=== PATIENT | female | born 1985 | race Caucasian/White ===

== ENCOUNTER 2016-09-09 13:05 | Emergency (ER) | payer OTHER ==
[~2016-09-09] VITALS: Ht 157.4 cm; Wt 106.6 kg
[~2016-09-09 13:05] MED LIST: ALAVERT10 M1 PO; ANAPROX DS550 MG PO; ATARAX25 MG PO; B12100 MC1; BACTRIM DS 8001 TA1 PO; BACTROBAN2% TP; BIO-STATIN1 POW; CATAFLAM50 MG PO; CIPRO500 MG PO; CITALOPRAM10 MG PO; CLARITIN10 MG PO; CYCLOBENZAPRINE5 M3 PO; DIFLUCAN150 MG PO; EES400 MG PO; FLEXERIL5 MG PO; FOLIC ACID1 MG PO; HYDROCHLOROTHIA25 MG PO; HYDROCORTISONE 14 OZ PO; IBU-8800 MG PO; IRON324 M1 PO; KCL PO; KEFLEX500 MG PO; KENALOG0.1% TP; KENALOG0.5% TP; LISINOPRIL10 MG PO; LISINOPRIL2.5 MG PO; LOPRESSOR25 MG PO; MACROBID100 M1 PO; MEDROL DOSEPAK4 MG PO; MOTRIN800 MG PO; Motrin,Rufen800 MG PO; NAPROSYN500 MG PO; NKHM; PERCOCET; PERCOCET 325 MG1 TA2 PO; POTASSIUM75 MG PO; PREDNICOT10 MG PO; PREDNISONE PO; PRENATAL1 TA1 PO; SEPTRA DS 800 M1 TAB PO; TOPAMAX25 M1 PO; TORADOL10 MG PO; TRAMADOL HCL50 MG PO; ULTRAM50 MG PO; VICODIN 5/500 505 MG PO; ZANTAC150 MG PO; ZITHROMAX Z PA250 MG PO; ZOFRAN ODT4 MG SL
[2016-09-22] MEDS ORDERED: ULTRAM50 MG PO (01:02)
[2016-09-22] MEDS ORDERED: FLONASE ALLERG9.9 ML NAS (01:02)
[2016-09-22] MEDS ORDERED: ZITHROMAX250 MG PO (01:02)
[2016-10-23] MEDS ORDERED: TOPROL XL50 M1 PO (18:05)
[2016-10-23] MEDS ORDERED: ASPIRIN ADULT L81 M2 PO (18:05)
[2016-10-23] MEDS ORDERED: VITAMIN D50000 I3 PO (18:05)
== END 2016-09-09 14:24 | disposition home or self-care (01) ==
LOC: ED 13:05
DX: S80.02XA Contusion of left knee, initial encounter (principal); R03.0 Elevated blood-pressure reading, without diagnosis of hypertension; Z88.0 Allergy status to penicillin; Z88.6 Allergy status to analgesic agent; W22.8XXA Striking against or struck by other objects, initial encounter; Y93.9 Activity, unspecified; Y92.9 Unspecified place or not applicable; Y99.9 Unspecified external cause status

== ENCOUNTER 2016-09-10 21:04 | Inpatient (IN) | payer OTHER ==
[~2016-09-10] VITALS: Ht 160 cm; Wt 99.8 kg
--- NOTE | ~2016-09-10 | WRIGHTHP ---
[place], [place] PATIENT HISTORY AND PHYSICAL EXAM NAME: FINA MITCHELL [facility] #: [id number] UNIT #: [id number] ROOM: 511 DOCTOR: GUERLINE MCCRARY DO BIRTHDATE: [birth year] DOS: 09/11/2016 PRIMARY CARE PHYSICIAN: Dr. Flores. The patient was seen and evaluated with the resident on 09/11/2016. Please see the resident's note for further details. ASSESSMENT: 1. Chest pain. 2. Frequent ventricular ectopy. 3. Vitamin B12 deficiency. 4. Uncontrolled hypertension. 5. Dyslipidemia with a low HDL. 6. History of admission to the hospital in 2012 for similar symptoms involving ventricular ectopy. 7. Anxiety. PLAN: Cardiology has been consulted. An exercise stress test was done earlier today. A beta jose has been ordered to help control the ectopy. Motrin and Percocet will be ordered in scheduled doses in an attempt to control her pain. B12 shots will be initiated. Echocardiogram has been ordered. GUERLINE MCCRARY DO CM:HISPHYS:PATIENT HISTORY AND PHYSICAL EXAMINATION 52 14 GUERLINE MCCRARY DO 09/11/16 2014 interface
--- NOTE | ~2016-09-10 | ST ---
[place], [place] EXERCISE STRESS TEST REPORT NAME: FINA MITCHELL [facility] #: [id number] UNIT #: [id number] ROOM: 511 DOCTOR: BRODERICK ALVAREZ,SANCHEZ BIRTHDATE: [birth year] DOS: 09/11/2016 REFERRING PHYSICIAN: Anish Flores REASON FOR TEST: Evaluation of chest pain. PHYSICAL EXAMINATION: NECK: Supple. LUNGS: Clear anteriorly. HEART: Regular rhythm. PROTOCOL: Jorge protocol. DESCRIPTION: Total test time 7 minutes. Maximum heart rate of 179, which is 95% of target heart rate. Peak blood pressure 166/104, adequate response. Total mets 8.3 mets. Holm treadmill score +7. SYMPTOMS: The patient developed some chest burning, grade 1/10, which is unchanged during her stress test. This started in the mid stress test and continued throughout the stress test and the recovery. EKG: Resting EKG shows sinus rhythm with inferior nonspecific ST-T changes. Stress EKG showed no ischemia. The patient had PVCs including couplets during the first minute of the stage I protocol and the PVCs completely resolved in the stress and reappeared in the recovery phase. CONCLUSION: Since the patient developed mild chest burning, mild, grade 1/10 on a scale of 10, resolved in the recovery phase. EKG, no ischemia. The patient had significant ventricular ectopy at rest as well as recovery phase therapy. Ventricular ectopy is completely resolved during her treadmill stress test. She noted to have ventricular ectopy including trigeminy, quadrigeminy, and also occasional couplets and one 3-beat wide-complex rhythm. POST-STRESS COMPLICATIONS: None. SANCHEZ VILLAFANA MD CM:STRESS:EXERCISE STRESS TEST REPORT [id number] SANCHEZ VILLAFANA MD
--- NOTE | ~2016-09-10 | CON ---
[place], [place] REPORT OF CONSULTATION [facility] [id number] UNIT #: [id number] ROOM: 511 DOCTOR: BRODERICK ALVAREZ,SANCHEZ BIRTHDATE: [birth year] DOS: 09/11/2016 ADDENDUM CARDIOLOGY CONSULTATION REASON FOR CONSULTATION: Chest pain and PVCs. HISTORY OF PRESENT ILLNESS: The patient has been admitted for her intermittent chest pains and significant PVCs and Cardiology was consulted. She isn't stating further chest pains at this time. PHYSICAL EXAMINATION: FOCUSED CARDIAC EXAM: Heart was irregular due to the ectopy, no S3. Grade 1/6 systolic murmur. LUNGS: Clear to auscultation. EXTREMITIES: Showed no edema. DIAGNOSTIC IMPRESSION: 1. Chest pain, atypical, myocardial infarction ruled out. 2. Frequent ventricular ectopy. 3. Hypertension. 4. Obesity. RECOMMENDATIONS: 1. We will add low dose beta jose for hypertension and also ventricular ectopy. 2. Exercise treadmill today to rule out any stress-induced ischemia versus stress induced arrhythmias. 3. The patient was counseled to quit caffeine intake. 4. Stop Cardizem and add low dose beta jose for her abnormal EKG and sinus tachycardia. 5. If the stress test is unremarkable and blood pressure and heart rates are stable, possibly she can be discharged home tomorrow. This note is an addendum to the note dictated by Dr. Shelly Lynn. His exam and assessment reflects my work. SANCHEZ VILLAFANA MD CM:CONSTR:REPORT OF CONSULTATION 0227 09/14/16 1403 interface
--- NOTE | ~2016-09-10 | HM ---
[place], [place] HOLTER MONITOR REPORT [facility] [id number] UNIT #: [id number] ROOM: 511 DOCTOR: JAMES COY MD BIRTHDATE: [birth year] DOS: 09/11/2016 48-HOUR HOLTER MONITOR REPORT The recording occurred between 09/11/2016 and 09/13/2016. The recording was analyzed and interpreted on 09/14/2016. REFERRED BY: Dr. Simms. INDICATION: Palpitations. FINDINGS: 1. Basic rhythm is normal sinus. The patient's average heart rate was 84 and varied from 60 beats per minute to 128 beats per minute in sinus rhythm. 2. Very frequent premature ventricular contractions were noted. These were uniform PVCs and comprised approximately 10% of the patient's total heartbeats for the 48-hour period. She did have frequent couplets and triplets as well was a single 5-beat run of nonsustained ventricular tachycardia with a heart rate of 162, occurring at 3:42 p.m. 3. No sustained ventricular tachycardia was seen. 4. Rare premature atrial contractions were recorded. No SVT was seen. There were no prolonged pauses. 5. The patient did not return a diary and therefore, I could not correlate arrhythmias with patient's symptoms. IMPRESSION: 1. Basic rhythm is normal sinus. 2. Very frequent premature ventricular contractions recorded, comprising approximately 10% of the patient's total heartbeats with bigeminy, couplets, triplets, and a single 5-beat run of nonsustained ventricular tachycardia. No sustained ventricular tachycardia was seen. 3. Rare premature atrial contractions. JAMES COY MD CM:HOLTER:HOLTER MONITOR REPORT [id number] JAMES COY MD
--- NOTE | ~2016-09-10 | PR ---
[place], [place] PROGRESS NOTE NAME: FINA MITCHELL [facility] #: [id number] UNIT #: [id number] ROOM: 511 DOCTOR: JAMES COY MD BIRTHDATE: [birth year] DOS: 09/12/2016 CARDIOLOGY PROGRESS NOTE SUBJECTIVE: The patient was seen at her bedside at [facility] today, 09/12/2016 for followup of atypical chest pain, left ventricular dysfunction, and PVCs. She is a morbidly obese white female who presented to the hospital with substernal and right anterior chest pain. She states that the substernal chest pain has been persistent and continuous. The right anterior chest and neck pain are made worse by motion and by palpation. She did not have any signs of acute myocardial injury on admission. A stress test without imaging showed adequate exercise capacity. She did have frequent PVCs at rest, which resolved during exercise. An echocardiogram did show normal left ventricular size with mildly impaired overall left ventricular systolic function. Ejection fraction was between 45% and 50% with Doppler evidence for stage 1 diastolic relaxation abnormalities. No other abnormalities were seen. The patient was started on beta blockers for her PVCs and left ventricular dysfunction and is tolerating this well. PHYSICAL EXAMINATION: VITAL SIGNS: Today, her pulse is 82 and regular, blood pressure is 115/60. She is afebrile and weighs 99.8 kilograms with a body mass index of 39. HEENT: Normocephalic, atraumatic. Extraocular muscles are intact. Sclerae are clear. Pupils are equal, round, and reactive to light. Oral mucosa is moist. Tongue is midline. NECK: Supple. She has no jugular distention. Carotids are full without bruits. She has no neck or supraclavicular masses, no thyromegaly. LUNGS: Respirations are unlabored. Her chest is clear to auscultation and percussion. She has no presacral edema or chest wall tenderness. HEART: Has a regular rhythm with a soft S4 gallop, but no S3 or murmur. The PMI is not displaced. She has no precordial heave, lift or thrill. ABDOMEN: Soft and normally active without masses, organomegaly or bruits. EXTREMITIES: Showed no edema. Peripheral pulses are palpable in the feet. IMPRESSION: 1. Atypical chest pain, which is almost certainly musculoskeletal in origin. 2. Probable mild cardiomyopathy. The etiology of this is not apparent. Her stress test did not suggest the presence of ischemia and her arrhythmia is actually improved with exercise. She denies any history of sleep apnea and states that no one tells her that she is a heavy snorer. She does have fatigue first thing in the morning, but denies falling asleep at an inappropriate times or morning headaches. 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 For now, we will treat her medically. 3. Morbid obesity. PLAN: For now, we will treat her medically as noted. From our perspective, she could be discharged to home on metoprolol. I will increase the dose to 50 mg twice a day and change her to metoprolol succinate. We would like to follow up with her in the office in the next few weeks. [place], [place] PROGRESS NOTE NAME: FINA MITCHELL UNIT #: [id number] ROOM: 511 DOCTOR: JAMES COY MD BIRTHDATE: [birth year] We thank the hospitalist group for asking our advice regarding her care. JAMES COY MD CM:PNTRANS 1513 16 JAMES COY MD 09/12/161815 interface
[2016-09-10 21:15] VITALS: BP 152/100
[2016-09-10 22:17] VITALS: BP 149/84
[2016-09-10 22:23] LABS: BASO % 0.5 % (0.0-1.0); EOS # 0.1 10*3/uL (0.0-0.4); EOS % 1.1 % (1.0-4.0); HEMATOCRIT 42.8 % (37.0-47.0); HEMOGLOBIN 14.8 g/dl (12.0-16.0); LYMPH # 3.3 10*3/uL (1.3-4.4); LYMPH % 40.2 % (27.0-41.0); MEAN CELL VOLUME 87.5 fl (81.0-99.0); MEAN CORPUSCULAR HGB 30.3 pg (27.0-31.0); MEAN CORPUSCULAR HGB CONC 34.6 g/dl (33.0-37.0); MEAN PLATELET VOLUME 8.8 fl (9.6-12.3); MONO # 0.5 10*3/uL (0.1-1.0); MONO % 6.6 % (3.0-9.0); NEUT # 4.2 10*3/uL (2.3-7.9); NEUT % 51.4 % (47.0-73.0); PLATELET COUNT AUTOMATED 244 10*3/uL (130-400); RED BLOOD COUNT 4.89 10*6/uL (4.10-5.10); WHITE BLOOD COUNT 8.2 10*3/uL (4.8-10.8)
[2016-09-10 22:42] LABS: PROTHROMBIN TIME 10.4 SECONDS (9.0-12.4)
[2016-09-10 22:43] LABS: ALBUMIN 3.8 gm/dl (3.1-4.5); ALKALINE PHOSPHATASE 40 U/L (45-117); BILIRUBIN, TOTAL 0.7 mg/dl (0.2-1.0); BUN 12 mg/dl (7-24); CARBON DIOXIDE 28 mmol/L (21-32); CHLORIDE 104 mmol/L (98-107); CKMB < 0.5 ng/ml (0.5-3.6); CPK 51 U/L (26-192); EST GLOM FILT AFRICAN AMERICAN > 60 ml/min; GLUCOSE 100 mg/dL (65-99); LDH 174 U/L (84-246); MAGNESIUM 2.1 mg/dL (1.5-2.1); POTASSIUM 4.1 mmol/L (3.5-5.1); SGOT/AST 25 IU/L (3-35); SGPT/ALT 44 U/L (12-78); SODIUM 140 mmol/L (136-145); TOTAL PROTEIN 7.5 gm/dL (6.4-8.2); TROPONIN I < 0.015 ng/ml (<0.5)
[2016-09-10 22:45] VITALS: BP 122/83
[2016-09-10 23:16] VITALS: BP 131/93
[2016-09-10 23:28] VITALS: BP 148/81
[2016-09-11] VITALS: BP 138/78
[2016-09-11 00:04] VITALS: BP 151/89
[2016-09-11 02:04] LABS: BILIRUBIN NEGATIVE (NEGATIVE); BLOOD NEGATIVE (NEGATIVE); COLOR YELLOW (YELLOW); GLUCOSE NEGATIVE (NEGATIVE); KETONE NEGATIVE (NEGATIVE); LEUKO ESTERASE NEGATIVE (NEGATIVE); NITRITE NEGATIVE (NEGATIVE); PROTEIN NEGATIVE (NEGATIVE); SPECIFIC GRAVITY 1.015 (1.005-1.030)
[2016-09-11 02:25] LABS: BACTERIA 1+; CLARITY SL CLOUDY (CLEAR); EPITHELIAL CELLS 45-50; URINE REFLEX COMMENT NO (NO); WBC 0-2 wbc/hpf (0-5)
[2016-09-11 06:21] LABS: BASO % 0.4 % (0.0-1.0); EOS # 0.1 10*3/uL (0.0-0.4); EOS % 1.4 % (1.0-4.0); HEMOGLOBIN 14.2 g/dl (12.0-16.0); LYMPH # 3.4 10*3/uL (1.3-4.4); LYMPH % 43.5 % (27.0-41.0); MEAN CELL VOLUME 87.8 fl (81.0-99.0); MEAN CORPUSCULAR HGB 30.4 pg (27.0-31.0); MEAN CORPUSCULAR HGB CONC 34.6 g/dl (33.0-37.0); MEAN PLATELET VOLUME 8.7 fl (9.6-12.3); MONO # 0.6 10*3/uL (0.1-1.0); MONO % 7.5 % (3.0-9.0); NEUT # 3.7 10*3/uL (2.3-7.9); NEUT % 47.1 % (47.0-73.0); PLATELET COUNT AUTOMATED 218 10*3/uL (130-400); RED BLOOD COUNT 4.67 10*6/uL (4.10-5.10); RED CELL DISTRI WIDTH 12.3 % (0-14.5); WHITE BLOOD COUNT 7.9 10*3/uL (4.8-10.8)
[2016-09-11 06:34] LABS: CKMB < 0.5 ng/ml (0.5-3.6); CPK 40 U/L (26-192); TROPONIN I < 0.015 ng/ml (<0.5)
[2016-09-11 06:53] LABS: HEMOGLOBIN A1c 5.3 % (4.8-5.6)
[2016-09-11 06:54] LABS: PROTHROMBIN TIME 10.5 SECONDS (9.0-12.4)
[2016-09-11 07:00] LABS: ALBUMIN 3.4 gm/dl (3.1-4.5); ALKALINE PHOSPHATASE 33 U/L (45-117); BILIRUBIN, TOTAL 0.8 mg/dl (0.2-1.0); BUN 11 mg/dl (7-24); CARBON DIOXIDE 28 mmol/L (21-32); CHLORIDE 106 mmol/L (98-107); CHOLESTEROL 166 mg/dL (<200); EST GLOM FILT AFRICAN AMERICAN > 60 ml/min; GLUCOSE 126 mg/dL (65-99); HDL CHOLESTEROL 36 mg/dl (40-60); LDL CHOLESTEROL 102 mg/dL (9-159); PHOSPHOROUS 2.9 mg/dL (2.5-4.9); POTASSIUM 3.7 mmol/L (3.5-5.1); SGOT/AST 17 IU/L (3-35); SGPT/ALT 38 U/L (12-78); SODIUM 141 mmol/L (136-145); TOTAL PROTEIN 6.9 gm/dL (6.4-8.2); TRIGLYCERIDES 138 mg/dl (<150); VLDL CHOLESTEROL 28 mg/dL (6-40)
[2016-09-11 07:27] LABS: FOLIC ACID 5.43 ng/mL (>5.38); VITAMIN D, 25-HYDROXY 15.2 ng/mL (30-100)
[2016-09-11 08:00] VITALS: BP 137/85
[2016-09-11 12:05] LABS: CKMB 0.6 ng/ml (0.5-3.6); CPK 39 U/L (26-192)
[2016-09-11 12:07] LABS: TROPONIN I < 0.015 ng/ml (<0.5)
[2016-09-11 16:00] VITALS: BP 132/76
[2016-09-11 18:14] LABS: CKMB 0.7 ng/ml (0.5-3.6); CPK 42 U/L (26-192)
[2016-09-11 18:15] LABS: TROPONIN I < 0.015 ng/ml (<0.5)
[2016-09-11 20:00] VITALS: BP 150/93
[2016-09-12] VITALS: BP 114/75
[2016-09-12 05:52] LABS: BASO % 0.6 % (0.0-1.0); EOS # 0.2 10*3/uL (0.0-0.4); EOS % 2.1 % (1.0-4.0); HEMATOCRIT 41.4 % (37.0-47.0); HEMOGLOBIN 14.3 g/dl (12.0-16.0); LYMPH # 3.2 10*3/uL (1.3-4.4); LYMPH % 45.1 % (27.0-41.0); MEAN CELL VOLUME 88.7 fl (81.0-99.0); MEAN CORPUSCULAR HGB 30.6 pg (27.0-31.0); MEAN CORPUSCULAR HGB CONC 34.5 g/dl (33.0-37.0); MEAN PLATELET VOLUME 8.7 fl (9.6-12.3); MONO # 0.4 10*3/uL (0.1-1.0); MONO % 6.2 % (3.0-9.0); NEUT # 3.3 10*3/uL (2.3-7.9); NEUT % 45.9 % (47.0-73.0); PLATELET COUNT AUTOMATED 228 10*3/uL (130-400); RED BLOOD COUNT 4.67 10*6/uL (4.10-5.10); RED CELL DISTRI WIDTH 12.4 % (0-14.5); WHITE BLOOD COUNT 7.1 10*3/uL (4.8-10.8)
[2016-09-12 06:27] LABS: ALBUMIN 3.5 gm/dl (3.1-4.5); ALKALINE PHOSPHATASE 34 U/L (45-117); BILIRUBIN, TOTAL 0.8 mg/dl (0.2-1.0); BUN 14 mg/dl (7-24); C-REACTIVE PROTEIN 0.53 MG/DL (0-0.3); CARBON DIOXIDE 28 mmol/L (21-32); CHLORIDE 106 mmol/L (98-107); EST GLOM FILT AFRICAN AMERICAN > 60 ml/min; GLUCOSE 126 mg/dL (65-99); MAGNESIUM 2.3 mg/dL (1.5-2.1); POTASSIUM 4.1 mmol/L (3.5-5.1); SGOT/AST 20 IU/L (3-35); SGPT/ALT 42 U/L (12-78); SODIUM 142 mmol/L (136-145); TOTAL PROTEIN 6.8 gm/dL (6.4-8.2)
[2016-09-12 08:00] VITALS: BP 112/76
[2016-09-12 12:00] VITALS: BP 115/60
[2016-09-12] MEDS ORDERED: TOPROL XL50 M1 PO (15:39)
[2016-09-12] MEDS ORDERED: HYDROCODONE BIT1 T11 PO (16:17)
[2016-09-22] MEDS ORDERED: FLONASE ALLERG9.9 ML NAS (01:02)
[2016-09-22] MEDS ORDERED: ZITHROMAX250 MG PO (01:02)
[2016-09-22] MEDS ORDERED: ULTRAM50 MG PO (01:02)
[2016-10-23] MEDS ORDERED: TOPROL XL50 M1 PO (18:05)
[2016-10-23] MEDS ORDERED: ASPIRIN ADULT L81 M2 PO (18:05)
[2016-10-23] MEDS ORDERED: VITAMIN D50000 I3 PO (18:05)
== END 2016-09-12 16:30 | disposition home or self-care (01) | DRG 313 ==
LOC: ED 21:04 → EDHOLD 09-11 00:06 → 5E 09-11 00:06
PROVIDERS: Emergency Medicine; Hospitalist; Nurse Practitioner Family; Student in an Organized Health Care Education/Training Program
DX: R07.89 Other chest pain (principal); I42.9 Cardiomyopathy, unspecified; I49.3 Ventricular premature depolarization; I10 Essential (primary) hypertension; R94.5 Abnormal results of liver function studies; E66.01 Morbid (severe) obesity due to excess calories; E53.8 Deficiency of other specified B group vitamins; E78.5 Hyperlipidemia, unspecified; F41.9 Anxiety disorder, unspecified; Z98.51 Tubal ligation status; Z98.890 Other specified postprocedural states; Z72.89 Other problems related to lifestyle; Z88.0 Allergy status to penicillin; Z88.6 Allergy status to analgesic agent

== ENCOUNTER 2017-01-15 00:18 | Emergency (ER) | payer OTHER ==
[~2017-01-15] VITALS: Ht 157.4 cm; Wt 111.1 kg
[~2017-01-15 00:18] MED LIST changes: +ASPIRIN ADULT L81 M2 PO; +FLONASE ALLERG9.9 ML NAS; +HYDROCODONE BIT1 T11 PO; +TOPROL XL50 M1 PO; +VITAMIN D50000 I3 PO; +ZITHROMAX250 MG PO
[2017-01-15] MEDS ORDERED: METOPROLOL SUC100 M1 PO (00:48)
[2017-01-15 00:59] LABS: BASO % 0.5 % (0.0-1.0); EOS # 0.1 10*3/uL (0.0-0.4); EOS % 1.3 % (1.0-4.0); HEMATOCRIT 41.1 % (37.0-47.0); HEMOGLOBIN 14.1 g/dl (12.0-16.0); LYMPH # 3.4 10*3/uL (1.3-4.4); LYMPH % 41.5 % (27.0-41.0); MEAN CELL VOLUME 88.4 fl (81.0-99.0); MEAN CORPUSCULAR HGB 30.3 pg (27.0-31.0); MEAN CORPUSCULAR HGB CONC 34.3 g/dl (33.0-37.0); MEAN PLATELET VOLUME 8.6 fl (9.6-12.3); MONO # 0.6 10*3/uL (0.1-1.0); MONO % 7.6 % (3.0-9.0); NEUT % 48.9 % (47.0-73.0); PLATELET COUNT AUTOMATED 260 10*3/uL (130-400); RED BLOOD COUNT 4.65 10*6/uL (4.10-5.10); RED CELL DISTRI WIDTH 12.5 % (0-14.5); WHITE BLOOD COUNT 8.3 10*3/uL (4.8-10.8)
[2017-01-15 01:14] LABS: ALBUMIN 3.7 gm/dl (3.1-4.5); ALKALINE PHOSPHATASE 44 U/L (45-117); BILIRUBIN, TOTAL 0.8 mg/dl (0.2-1.0); BUN 12 mg/dl (7-24); C-REACTIVE PROTEIN 0.53 MG/DL (0-0.3); CARBON DIOXIDE 27 mmol/L (21-32); CHLORIDE 108 mmol/L (98-107); CPK 70 U/L (26-192); EST GLOM FILT AFRICAN AMERICAN > 60 ml/min; GLUCOSE 118 mg/dL (65-99); INTERNATIONAL NORM RATIO 0.9 (2.0-3.5); MAGNESIUM 2.3 mg/dL (1.5-2.1); POTASSIUM 4.1 mmol/L (3.5-5.1); SGOT/AST 35 IU/L (3-35); SGPT/ALT 55 U/L (12-78); SODIUM 143 mmol/L (136-145); TOTAL PROTEIN 7.8 gm/dL (6.4-8.2)
[2017-01-15 01:17] LABS: CKMB < 0.5 ng/ml (0.5-3.6); TROPONIN I < 0.015 ng/ml (<0.045)
== END 2017-01-15 04:43 | disposition home or self-care (01) ==
LOC: ED 00:18
PROVIDERS: Nurse Practitioner Family
DX: R07.1 Chest pain on breathing (principal); I50.9 Heart failure, unspecified; I10 Essential (primary) hypertension; Z88.0 Allergy status to penicillin; Z88.6 Allergy status to analgesic agent; Z79.899 Other long term (current) drug therapy

== ENCOUNTER 2017-08-07 10:45 | Emergency (ER) | payer OTHER ==
[~2017-08-07] VITALS: Ht 157.4 cm; Wt 111.1 kg
--- NOTE | ~2017-08-07 | EKG ---
[place], [place] ELECTROCARDIOGRAM REPORT NAME: FINA MITCHELL UNIT #: [id number] ROOM: DOCTOR: BRODERICK ALVAREZ,SANCHEZ BIRTHDATE: [birth year] DOS: 08/07/2017 TIME: 1049 hours. IMPRESSION: 1. Sinus rhythm. 2. Anteroseptal ST-T changes, ischemia. 3. Normal QT interval. SANCHEZ VILLAFANA MD CM:EKGRPT:ELECTROCARDIOGRAM REPORT [id number] 1215 SANCHEZ VILLAFANA MD
[~2017-08-07 10:45] MED LIST changes: +METOPROLOL SUC100 M1 PO
[2017-08-07 11:28] LABS: BASO % 0.4 % (0.0-1.0); EOS # 0.1 10*3/uL (0.0-0.4); EOS % 0.6 % (1.0-4.0); HEMATOCRIT 40.7 % (37.0-47.0); HEMOGLOBIN 14.1 g/dl (12.0-16.0); LYMPH # 2.9 10*3/uL (1.3-4.4); LYMPH % 29.2 % (27.0-41.0); MEAN CELL VOLUME 88.1 fl (81.0-99.0); MEAN CORPUSCULAR HGB 30.5 pg (27.0-31.0); MEAN CORPUSCULAR HGB CONC 34.6 g/dl (33.0-37.0); MEAN PLATELET VOLUME 8.5 fl (9.6-12.3); MONO # 0.7 10*3/uL (0.1-1.0); MONO % 6.7 % (3.0-9.0); NEUT # 6.2 10*3/uL (2.3-7.9); NEUT % 62.8 % (47.0-73.0); PLATELET COUNT AUTOMATED 267 10*3/uL (130-400); RED BLOOD COUNT 4.62 10*6/uL (4.10-5.10); RED CELL DISTRI WIDTH 12.6 % (0-14.5); WHITE BLOOD COUNT 9.9 10*3/uL (4.8-10.8)
[2017-08-07 11:43] LABS: ALBUMIN 3.6 gm/dl (3.1-4.5); ALKALINE PHOSPHATASE 42 U/L (45-117); BUN 16 mg/dl (7-24); CHLORIDE 106 mmol/L (98-107); CREATININE 0.69 mg/dL (0.55-1.02); POTASSIUM 3.6 mmol/L (3.5-5.1); SGOT/AST 19 IU/L (3-35); SGPT/ALT 47 U/L (12-78); SODIUM 140 mmol/L (136-145); TOTAL PROTEIN 7.6 gm/dL (6.4-8.2)
[2017-08-07 11:44] LABS: B-hCG (QUALITATIVE) NEGATIVE (NEGATIVE); TROPONIN I < 0.015 ng/ml (<0.045)
[2017-08-07 11:53] LABS: ACT PARTIAL THROMBO TIME 21.6 SECONDS (20.8-31.5)
== END 2017-08-07 12:19 | disposition home or self-care (01) ==
LOC: ED 10:45
PROVIDERS: Emergency Medicine
DX: R07.89 Other chest pain (principal); R05 Cough; I50.9 Heart failure, unspecified; Z88.0 Allergy status to penicillin; Z88.5 Allergy status to narcotic agent; Z79.899 Other long term (current) drug therapy; R73.9 Hyperglycemia, unspecified; Z90.89 Acquired absence of other organs; Z98.51 Tubal ligation status

== ENCOUNTER 2017-12-08 22:20 | Emergency (ER) | payer OTHER ==
[2017-12-08] MEDS ORDERED: IBUPROFEN600 MG PO (23:43)
== END 2017-12-09 01:00 | disposition home or self-care (01) ==
LOC: ED 22:20
DX: S93.492A Sprain of other ligament of left ankle, initial encounter (principal); S80.02XA Contusion of left knee, initial encounter; Z98.51 Tubal ligation status; Z98.890 Other specified postprocedural states; Z79.899 Other long term (current) drug therapy; Z88.0 Allergy status to penicillin; Z88.5 Allergy status to narcotic agent; Z88.6 Allergy status to analgesic agent; W19.XXXA Unspecified fall, initial encounter; Y93.89 Activity, other specified; Y92.090 Kitchen in other non-institutional residence as the place of occurrence of the external cause; Y99.9 Unspecified external cause status

== ENCOUNTER 2018-02-03 18:47 | Emergency (ER) | payer BC, OTHER ==
[~2018-02-03] VITALS: Ht 157.4 cm; Wt 113.4 kg
[~2018-02-03 18:47] MED LIST changes: +IBUPROFEN600 MG PO
[2018-02-03] MEDS ORDERED: CYCLOBENZAPRINE10 MG PO (18:55)
[2018-02-03] MEDS ORDERED: Motrin,Rufen800 MG PO (18:55)
== END 2018-02-03 18:56 | disposition home or self-care (01) ==
LOC: ED 18:47
DX: G56.01 Carpal tunnel syndrome, right upper limb (principal); Z88.0 Allergy status to penicillin; Z88.6 Allergy status to analgesic agent

== ENCOUNTER 2018-05-19 20:53 | Emergency (ER) | payer BC ==
[~2018-05-19] VITALS: Ht 162.5 cm; Wt 77.1 kg
--- NOTE | ~2018-05-19 | EKG ---
[place], [place] ELECTROCARDIOGRAM REPORT NAME: FINA MITCHELL UNIT #: [id number] ROOM: DOCTOR: EPIPHANY DRAFT REPORT BIRTHDATE: [birth year] [facility] Test Date: 2018-05-19 Test Time: 20:58:47 Pat Name: FINA MITCHELL Department: ER Room: Gender: F Gluing Machine Operator: Maria Teresa Feliciano : 1985 Requested By: HOPE AVENDAÑO Order Number: [id number] Reading MD: Conner Chester MD Measurements Intervals [place] Rate: 90 P: 59 FL: 162 QRS: 9 QRSD: 100 T: 58 QT: 349 QTc: 427 Interpretive Statements Sinus rhythm Electronically Signed On 05-20-2018 8:16:01 PDT by Conner Chester MD CM:EKGRPT:ELECTROCARDIOGRAM REPORT [id number] HOPE AVENDAÑO MD EPIPHANY DRAFT REPORT HOPE AVENDAÑO MD
[~2018-05-19 20:53] MED LIST changes: +CYCLOBENZAPRINE10 MG PO
[2018-05-19 21:13] LABS: BASO % 0.5 % (0.0-1.0); EOS # 0.1 10*3/uL (0.0-0.4); EOS % 1.9 % (1.0-4.0); HEMATOCRIT 40.8 % (37.0-47.0); HEMOGLOBIN 14.3 g/dl (12.0-16.0); LYMPH # 3.4 10*3/uL (1.3-4.4); LYMPH % 45.5 % (27.0-41.0); MEAN CELL VOLUME 88.1 fl (81.0-99.0); MEAN CORPUSCULAR HGB 30.9 pg (27.0-31.0); MEAN PLATELET VOLUME 8.5 fl (9.6-12.3); MONO # 0.4 10*3/uL (0.1-1.0); MONO % 5.2 % (3.0-9.0); NEUT # 3.5 10*3/uL (2.3-7.9); NEUT % 46.6 % (47.0-73.0); PLATELET COUNT AUTOMATED 249 10*3/uL (130-400); RED BLOOD COUNT 4.63 10*6/uL (4.10-5.10); RED CELL DISTRI WIDTH 12.5 % (0-14.5); WHITE BLOOD COUNT 7.5 10*3/uL (4.8-10.8)
[2018-05-19 21:30] LABS: ALBUMIN 3.8 gm/dl (3.1-4.5); ALKALINE PHOSPHATASE 40 U/L (45-117); BUN 9 mg/dl (7-24); CHLORIDE 106 mmol/L (98-107); CREATININE 0.78 mg/dL (0.55-1.02); POTASSIUM 3.7 mmol/L (3.5-5.1); SGOT/AST 20 IU/L (3-35); SGPT/ALT 46 U/L (12-78); SODIUM 141 mmol/L (136-145); TOTAL PROTEIN 7.6 gm/dL (6.4-8.2)
[2018-05-19 21:32] LABS: TROPONIN I < 0.015 ng/ml (<0.045)
== END 2018-05-19 22:54 | disposition home or self-care (01) ==
LOC: ED 20:53
PROVIDERS: Emergency Medicine Emergency Medical Services
DX: R07.89 Other chest pain (principal); Z98.51 Tubal ligation status; Z98.890 Other specified postprocedural states; Z90.89 Acquired absence of other organs; Z79.899 Other long term (current) drug therapy; Z88.0 Allergy status to penicillin; Z88.5 Allergy status to narcotic agent; Z88.6 Allergy status to analgesic agent

== ENCOUNTER 2018-10-14 00:03 | Inpatient (IN) | payer OTHER ==
[~2018-10-14] VITALS: Ht 157.4 cm; Wt 110.3 kg
--- NOTE | ~2018-10-14 | EKG ---
[place], [place] ELECTROCARDIOGRAM REPORT NAME: FINA MITCHELL UNIT #: [id number] ROOM: 518 DOCTOR: TRUDI DRAFT REPORT BIRTHDATE: [birth year] [facility] Test Date: 2018-10-14 Test Time: 00:09:17 Pat Name: FINA MITCHELL Department: Room: 518 Gender: F Utility Bagger: Maria Teresa Feliciano : 1985 Requested By: MILA JOHNSON Order Number: [id number] Reading MD: Edwina Esquivel MD Measurements Intervals [place] Rate: 116 P: 70 MN: 126 QRS: 5 QRSD: 96 T: 56 QT: 349 QTc: 485 Interpretive Statements Sinus tachycardia Consider anterior infarct Minimal ST depression, anterolateral leads Compared to ECG 05/19/2018 20:58:47 Myocardial infarct finding now present ST (T wave) deviation now present Sinus rhythm no longer present Electronically Signed On 10-14-2018 9:52:22 PST by Edwina Esquivel MD CM:EKGRPT:ELECTROCARDIOGRAM REPORT [id number] MILA METZ DRAFT REPORT MILA JOHNSON DO
--- NOTE | ~2018-10-14 | EKG ---
[place], [place] ELECTROCARDIOGRAM REPORT NAME: FINA MITCHELL UNIT #: [id number] ROOM: 518 DOCTOR: TRUDI DRAFT REPORT BIRTHDATE: [birth year] [facility] Test Date: 2018-10-14 Test Time: 02:57:43 Pat Name: FINA MITCHELL Department: Room: 518 Gender: F Care Asst: Maria Teresa Feliciano : 1985 Requested By: MILA JOHNSON Order Number: [id number] Reading MD: Edwina Esquivel MD Measurements Intervals [place] Rate: 90 P: 50 SD: 139 QRS: 1 QRSD: 96 T: 39 QT: 394 QTc: 482 Interpretive Statements Sinus rhythm Borderline T abnormalities, anterior leads Borderline prolonged QT interval Compared to ECG 05/19/2018 20:58:47 T-wave abnormality now present Electronically Signed On 10-14-2018 9:52:30 PST by Edwina Esquivel MD CM:EKGRPT:ELECTROCARDIOGRAM REPORT [id number] MILA METZ DRAFT REPORT MILA JOHNSON DO
--- NOTE | ~2018-10-14 | EKG ---
[place], [place] ELECTROCARDIOGRAM REPORT NAME: FINA MITCHELL UNIT #: [id number] ROOM: 518 DOCTOR: TRUDI DRAFT REPORT BIRTHDATE: [birth year] [facility] Test Date: 2018-10-14 Test Time: 07:02:47 Pat Name: FINA MITCHELL Department: Room: 518 Gender: F Java Development Team Lead: Jennifer Sheets : 1985 Requested By: MILA JOHNSON Order Number: [id number] Reading MD: Edwina Esquivel MD Measurements Intervals [place] Rate: 83 P: 63 PA: 143 QRS: -7 QRSD: 96 T: 29 QT: 417 QTc: 490 Interpretive Statements Sinus rhythm Borderline T abnormalities, anterior leads Borderline prolonged QT interval Compared to ECG 05/19/2018 20:58:47 T-wave abnormality now present Electronically Signed On 10-14-2018 9:52:57 PST by Edwina Esquivel MD CM:EKGRPT:ELECTROCARDIOGRAM REPORT [id number] MILA METZ DRAFT REPORT MILA JOHNSON DO
[2018-10-14 00:07] VITALS: BP 155/94
[2018-10-14 00:39] LABS: BASO % 0.5 % (0.0-1.0); EOS # 0.2 10*3/uL (0.0-0.4); EOS % 2.1 % (1.0-4.0); HEMATOCRIT 41.1 % (37.0-47.0); HEMOGLOBIN 14.3 g/dl (12.0-16.0); LYMPH # 2.9 10*3/uL (1.3-4.4); MEAN CELL VOLUME 87.6 fl (81.0-99.0); MEAN CORPUSCULAR HGB 30.5 pg (27.0-31.0); MEAN CORPUSCULAR HGB CONC 34.8 g/dl (33.0-37.0); MEAN PLATELET VOLUME 8.3 fl (9.6-12.3); MONO # 0.5 10*3/uL (0.1-1.0); MONO % 6.1 % (3.0-9.0); NEUT % 52.9 % (47.0-73.0); PLATELET COUNT AUTOMATED 251 10*3/uL (130-400); RED BLOOD COUNT 4.69 10*6/uL (4.10-5.10); RED CELL DISTRI WIDTH 12.9 % (0-14.5); WHITE BLOOD COUNT 7.5 10*3/uL (4.8-10.8)
[2018-10-14 01:05] VITALS: BP 150/93
[2018-10-14 01:10] LABS: ALBUMIN 3.7 gm/dl (3.1-4.5); ALKALINE PHOSPHATASE 43 U/L (45-117); BUN 10 mg/dl (7-24); CHLORIDE 103 mmol/L (98-107); SGOT/AST 40 IU/L (3-35); SGPT/ALT 74 U/L (12-78); SODIUM 139 mmol/L (136-145); TOTAL PROTEIN 7.4 gm/dL (6.4-8.2)
[2018-10-14 01:18] LABS: TROPONIN I < 0.015 ng/ml (<0.045)
[2018-10-14 02:50] VITALS: BP 136/81
[2018-10-14 06:38] LABS: BASO % 0.5 % (0.0-1.0); EOS # 0.2 10*3/uL (0.0-0.4); EOS % 2.3 % (1.0-4.0); HEMATOCRIT 40.4 % (37.0-47.0); HEMOGLOBIN 14.1 g/dl (12.0-16.0); LYMPH # 2.8 10*3/uL (1.3-4.4); MEAN CORPUSCULAR HGB 30.7 pg (27.0-31.0); MEAN CORPUSCULAR HGB CONC 34.9 g/dl (33.0-37.0); MEAN PLATELET VOLUME 8.3 fl (9.6-12.3); MONO # 0.5 10*3/uL (0.1-1.0); MONO % 6.6 % (3.0-9.0); NEUT # 3.9 10*3/uL (2.3-7.9); NEUT % 52.3 % (47.0-73.0); PLATELET COUNT AUTOMATED 237 10*3/uL (130-400); RED BLOOD COUNT 4.59 10*6/uL (4.10-5.10); WHITE BLOOD COUNT 7.4 10*3/uL (4.8-10.8)
[2018-10-14 07:03] LABS: BUN 12 mg/dl (7-24); CHLORIDE 106 mmol/L (98-107); CHOLESTEROL 197 mg/dL (<200); CREATININE 0.65 mg/dL (0.55-1.02); FREE T4 0.97 ng/dl (0.76-1.46); HDL CHOLESTEROL 36 mg/dl (40-60); LDL CHOLESTEROL 125 mg/dL (9-159); PHOSPHOROUS 3.7 mg/dL (2.5-4.9); POTASSIUM 4.1 mmol/L (3.5-5.1); SODIUM 139 mmol/L (136-145); TRIGLYCERIDES 181 mg/dl (<150); VLDL CHOLESTEROL 36 mg/dL (6-40)
[2018-10-14 08:47] LABS: VITAMIN D, 25-HYDROXY 16.1 ng/mL (30-100)
[2018-10-14 12:00] VITALS: BP 149/82
[2018-10-14] MEDS ORDERED: NATURE'S BLEND F1 MG PO (13:40)
[2018-10-14] MEDS ORDERED: VITAMIN D32000 UNI1 PO (13:40)
[2018-10-14] MEDS ORDERED: METOPROLOL SUCC25 M2 PO (13:40)
== END 2018-10-14 14:53 | disposition home or self-care (01) | DRG 206 ==
LOC: ED 00:03 → 5E 01:23 → EDHOLD 01:23 → 5E 01:45
PROVIDERS: Internal Medicine; Student in an Organized Health Care Education/Training Program; ADMIT Internal Medicine
DX: M94.0 Chondrocostal junction syndrome [Tietze] (principal); I42.8 Other cardiomyopathies; I50.42 Chronic combined systolic (congestive) and diastolic (congestive) heart failure; Z68.41 Body mass index [BMI] 40.0-44.9, adult; E66.01 Morbid (severe) obesity due to excess calories; R55 Syncope and collapse; R00.0 Tachycardia, unspecified; R03.0 Elevated blood-pressure reading, without diagnosis of hypertension; R73.9 Hyperglycemia, unspecified; R74.0 Nonspecific elevation of levels of transaminase and lactic acid dehydrogenase [LDH]; R06.09 Other forms of dyspnea; G89.29 Other chronic pain; R93.1 Abnormal findings on diagnostic imaging of heart and coronary circulation; Z98.51 Tubal ligation status; Z98.891 History of uterine scar from previous surgery; Z88.0 Allergy status to penicillin; Z88.8 Allergy status to other drugs, medicaments and biological substances; Z82.49 Family history of ischemic heart disease and other diseases of the circulatory system; Z83.3 Family history of diabetes mellitus

== ENCOUNTER 2019-05-14 21:58 | Emergency (ER) | payer OTHER ==
[~2019-05-14] VITALS: Wt 108.9 kg
[~2019-05-14 21:58] MED LIST changes: +METOPROLOL SUCC25 M2 PO; +NATURE'S BLEND F1 MG PO; +VITAMIN D32000 UNI1 PO
[2019-05-14 22:28] LABS: BILIRUBIN NEGATIVE (NEGATIVE); BLOOD NEGATIVE (NEGATIVE); CLARITY SL CLOUDY (CLEAR); COLOR YELLOW (YELLOW); GLUCOSE NEGATIVE (NEGATIVE); KETONE NEGATIVE (NEGATIVE); LEUKO ESTERASE NEGATIVE (NEGATIVE); NITRITE NEGATIVE (NEGATIVE); SPECIFIC GRAVITY >= 1.030 (1.005-1.030)
[2019-05-14 22:34] LABS: BACTERIA TRACE; MUCOUS TRACE; WBC 0-2 wbc/hpf (0-5)
[2019-05-15] MEDS ORDERED: CYCLOBENZAPRINE10 MG PO (00:44)
== END 2019-05-15 00:50 | disposition home or self-care (01) ==
LOC: ED 21:58
PROVIDERS: Emergency Medicine
DX: S29.012A Strain of muscle and tendon of back wall of thorax, initial encounter (principal); I11.0 Hypertensive heart disease with heart failure; I50.9 Heart failure, unspecified; E66.01 Morbid (severe) obesity due to excess calories; Z68.41 Body mass index [BMI] 40.0-44.9, adult; Z88.0 Allergy status to penicillin; Z88.6 Allergy status to analgesic agent; X58.XXXA Exposure to other specified factors, initial encounter; Y93.89 Activity, other specified; Y92.89 Other specified places as the place of occurrence of the external cause; Y99.0 Civilian activity done for income or pay

== ENCOUNTER 2019-09-23 03:03 | Emergency (ER) | payer OTHER ==
[~2019-09-23] VITALS: Ht 157.4 cm; Wt 114.3 kg
[2019-09-23] MEDS ORDERED: PREDNISONE20 M1 PO (06:03)
[2019-09-23] MEDS ORDERED: DIFLUCAN150 MG PO (06:03)
== END 2019-09-23 06:17 | disposition home or self-care (01) ==
LOC: ED 03:03
DX: J10.1 Influenza due to other identified influenza virus with other respiratory manifestations (principal); J20.9 Acute bronchitis, unspecified; B37.3 Candidiasis of vulva and vagina; G89.29 Other chronic pain; E66.01 Morbid (severe) obesity due to excess calories; I11.0 Hypertensive heart disease with heart failure; I50.40 Unspecified combined systolic (congestive) and diastolic (congestive) heart failure; Z88.0 Allergy status to penicillin; Z88.6 Allergy status to analgesic agent; Z79.899 Other long term (current) drug therapy; Z68.41 Body mass index [BMI] 40.0-44.9, adult

== ENCOUNTER 2020-04-15 09:51 | Emergency (ER) | payer OTHER ==
[~2020-04-15] VITALS: Ht 157.4 cm; Wt 114.3 kg
[~2020-04-15 09:51] MED LIST changes: +PREDNISONE20 M1 PO
[2020-04-15 10:33] LABS: BASO % 0.3 % (0.0-1.0); EOS # 0.1 10*3/uL (0.0-0.4); EOS % 1.3 % (1.0-4.0); LYMPH # 2.6 10*3/uL (1.3-4.4); LYMPH % 36.6 % (27.0-41.0); MEAN CELL VOLUME 86.2 fl (81.0-99.0); MEAN CORPUSCULAR HGB 29.3 pg (27.0-31.0); MEAN PLATELET VOLUME 8.7 fl (9.6-12.3); MONO # 0.4 10*3/uL (0.1-1.0); MONO % 5.6 % (3.0-9.0); NEUT % 55.8 % (47.0-73.0); PLATELET COUNT AUTOMATED 253 10*3/uL (130-400); RED BLOOD COUNT 4.99 10*6/uL (4.10-5.10); RED CELL DISTRI WIDTH 12.3 % (0-14.5); WHITE BLOOD COUNT 7.1 10*3/uL (4.8-10.8)
[2020-04-15 10:39] LABS: ACT PARTIAL THROMBO TIME 25.7 SECONDS (20.0-32.1)
[2020-04-15 10:46] LABS: ALBUMIN 3.8 gm/dl (3.1-4.5); ALKALINE PHOSPHATASE 51 U/L (45-117); BUN 12 mg/dl (7-24); CHLORIDE 104 mmol/L (98-107); CREATININE 0.74 mg/dL (0.55-1.02); POTASSIUM 3.7 mmol/L (3.5-5.1); SGOT/AST 45 IU/L (3-35); SGPT/ALT 105 U/L (12-78); SODIUM 131 mmol/L (136-145); TOTAL PROTEIN 7.7 gm/dL (6.4-8.2)
[2020-04-15 10:55] LABS: TROPONIN I < 0.015 ng/ml (<0.045)
[2020-04-15] MEDS ORDERED: ROBAXIN-750750 MG PO (12:26)
== END 2020-04-15 12:58 | disposition home or self-care (01) ==
LOC: ED 09:51
PROVIDERS: Emergency Medicine
DX: R73.9 Hyperglycemia, unspecified (principal); R25.2 Cramp and spasm; I11.0 Hypertensive heart disease with heart failure; I50.9 Heart failure, unspecified; Z88.6 Allergy status to analgesic agent; Z88.0 Allergy status to penicillin

== ENCOUNTER 2021-04-08 18:33 | Emergency (ER) | payer OTHER ==
[~2021-04-08] VITALS: Wt 115.7 kg
[~2021-04-08 18:33] MED LIST changes: +ROBAXIN-750750 MG PO
[2021-04-08 18:58] LABS: HEMATOCRIT 40.1 % (37.0-47.0); MEAN CELL VOLUME 89.1 fl (81.0-99.0); MEAN CORPUSCULAR HGB 29.8 pg (27.0-31.0); MEAN CORPUSCULAR HGB CONC 33.4 g/dl (33.0-37.0); MEAN PLATELET VOLUME 8.7 fl (9.6-12.3); NUCLEATED RED BLOOD CELL 0.1 10*3/uL (0.0-0.0); NUCLEATED RED BLOOD CELL 0.3 % (0.0-0.0); PLATELET COUNT AUTOMATED 394 10*3/uL (130-400); RED CELL DISTRI WIDTH 13.6 % (0-14.5)
[2021-04-08 19:14] LABS: ALBUMIN 3.7 gm/dl (3.1-4.5); ALKALINE PHOSPHATASE 47 U/L (45-117); BUN 9 mg/dl (7-24); CHLORIDE 104 mmol/L (98-107); POTASSIUM 3.9 mmol/L (3.5-5.1); SGOT/AST 23 IU/L (3-35); SODIUM 138 mmol/L (136-145); TOTAL PROTEIN 7.4 gm/dL (6.4-8.2)
[2021-04-08 19:17] LABS: TROPONIN I < 0.015 ng/ml (<0.045)
[2021-04-08 19:18] LABS: SGPT/ALT 62 U/L (12-78)
[2021-04-08 19:36] LABS: BASOPHILS 3 % (0-1); TOTAL CELLS COUNTED 100 #CELLS
[2021-04-08 19:41] LABS: PLATELET SUFFICIENCY NORMAL (NORMAL)
== END 2021-04-08 21:41 | disposition home or self-care (01) ==
LOC: ED 18:33
PROVIDERS: Emergency Medicine
DX: D72.829 Elevated white blood cell count, unspecified (principal); Z20.822 Contact with and (suspected) exposure to COVID-19; B34.9 Viral infection, unspecified; R73.9 Hyperglycemia, unspecified; Z88.0 Allergy status to penicillin; Z88.6 Allergy status to analgesic agent

== ENCOUNTER → 2021-06-16 | Outpatient (CLI) | payer OTHER ==
[~2021-06-16] MED LIST changes: +GLUCOTROL10 MG PO; +METFORMIN HYD1000 MG PO; +TYLENOL325 M3 PO; +ZESTRIL40 MG PO
== END | disposition home or self-care (01) ==
LOC: CARD 00:08
PROVIDERS: ATTEND Internal Medicine Cardiovascular Disease
DX: O10.019 Pre-existing essential hypertension complicating pregnancy, unspecified trimester (principal); O24.415 Gestational diabetes mellitus in pregnancy, controlled by oral hypoglycemic drugs; R07.9 Chest pain, unspecified; R06.00 Dyspnea, unspecified; R53.83 Other fatigue; I49.3 Ventricular premature depolarization; I20.8 Other forms of angina pectoris; Z3A.00 Weeks of gestation of pregnancy not specified

== ENCOUNTER 2021-07-04 09:05 | Emergency (ER) | payer OTHER ==
[~2021-07-04] VITALS: Ht 157.4 cm; Wt 111.1 kg
[2021-07-04 09:53] LABS: HEMATOCRIT 35.2 % (37.0-47.0); MEAN CELL VOLUME 90.7 fl (81.0-99.0); MEAN CORPUSCULAR HGB 29.6 pg (27.0-31.0); MEAN CORPUSCULAR HGB CONC 32.7 g/dl (33.0-37.0); MEAN PLATELET VOLUME 7.9 fl (9.6-12.3); NUCLEATED RED BLOOD CELL 0.4 10*3/uL (0.0-0.0); NUCLEATED RED BLOOD CELL 1.3 % (0.0-0.0); PLATELET COUNT AUTOMATED 286 10*3/uL (130-400); RED BLOOD COUNT 3.88 10*6/uL (4.10-5.10); RED CELL DISTRI WIDTH 16.5 % (0-14.5); WHITE BLOOD COUNT 27.8 10*3/uL (4.8-10.8)
[2021-07-04 10:06] LABS: ACT PARTIAL THROMBO TIME 22.5 SECONDS (20.0-32.1)
[2021-07-04 10:12] LABS: ALBUMIN 3.5 gm/dl (3.1-4.5); ALKALINE PHOSPHATASE 49 U/L (45-117); BUN 19 mg/dl (7-24); CHLORIDE 104 mmol/L (98-107); CREATININE 0.76 mg/dL (0.55-1.02); POTASSIUM 3.4 mmol/L (3.5-5.1); SGOT/AST 17 IU/L (3-35); SGPT/ALT 57 U/L (12-78); SODIUM 137 mmol/L (136-145); TOTAL PROTEIN 7.2 gm/dL (6.4-8.2)
[2021-07-04 10:17] LABS: BASOPHILS 1 % (0-1); POLYCHROMASIA SLIGHT; TOTAL CELLS COUNTED 100 #CELLS; TROPONIN I < 0.015 ng/ml (<0.045)
[2021-07-04 10:18] LABS: PLATELET SUFFICIENCY NORMAL (NORMAL)
[2021-07-04 11:15] LABS: BILIRUBIN Negative (Negative); BLOOD Negative (Negative); CLARITY Cloudy (Clear); COLOR Yellow (Yellow); GLUCOSE 3+ (Negative); KETONE Negative (Negative); LEUKO ESTERASE 1+ (Negative); NITRITE Negative (Negative); PH 5.5 (4.5-8.0)
[2021-07-04 11:24] LABS: BACTERIA 4+; EPITHELIAL CELLS 41-50; MUCOUS 2+
== END 2021-07-04 14:23 | disposition home or self-care (01) ==
LOC: ED 09:05
PROVIDERS: Emergency Medicine
DX: R07.89 Other chest pain (principal); C92.10 Chronic myeloid leukemia, BCR/ABL-positive, not having achieved remission; E66.01 Morbid (severe) obesity due to excess calories; I50.9 Heart failure, unspecified; Z88.0 Allergy status to penicillin; Z88.6 Allergy status to analgesic agent; Z79.899 Other long term (current) drug therapy

== ENCOUNTER 2021-08-24 16:29 | Emergency (ER) | payer OTHER ==
[~2021-08-24] VITALS: Ht 157.4 cm; Wt 106.1 kg
[2021-08-24 17:10] LABS: BASO % 0.6 % (0.0-1.0); EOS # 0.2 10*3/uL (0.0-0.4); EOS % 3.3 % (1.0-4.0); HEMATOCRIT 37.4 % (37.0-47.0); LYMPH # 3.8 10*3/uL (1.3-4.4); LYMPH % 57.1 % (27.0-41.0); MEAN CELL VOLUME 93.3 fl (81.0-99.0); MEAN CORPUSCULAR HGB 30.9 pg (27.0-31.0); MEAN CORPUSCULAR HGB CONC 33.2 g/dl (33.0-37.0); MEAN PLATELET VOLUME 7.9 fl (9.6-12.3); MONO # 0.6 10*3/uL (0.1-1.0); MONO % 9.2 % (3.0-9.0); NEUT % 29.7 % (47.0-73.0); PLATELET COUNT AUTOMATED 344 10*3/uL (130-400); RED BLOOD COUNT 4.01 10*6/uL (4.10-5.10); RED CELL DISTRI WIDTH 14.8 % (0-14.5); WHITE BLOOD COUNT 6.7 10*3/uL (4.8-10.8)
[2021-08-24 17:27] LABS: ALBUMIN 4.1 gm/dl (3.1-4.5); ALKALINE PHOSPHATASE 44 U/L (45-117); BUN 11 mg/dl (7-24); CHLORIDE 108 mmol/L (98-107); CREATININE 0.64 mg/dL (0.55-1.02); LIPASE 233 U/L (73-393); POTASSIUM 3.8 mmol/L (3.5-5.1); SGOT/AST 21 IU/L (3-35); SGPT/ALT 40 U/L (12-78); SODIUM 139 mmol/L (136-145); TOTAL PROTEIN 7.8 gm/dL (6.4-8.2)
[2021-08-24] MEDS ORDERED: FLOMAX0.4 MG PO (19:10)
[2021-08-24] MEDS ORDERED: TYLENOL325 M1 PO (19:10)
[2021-08-24] MEDS ORDERED: HYDROCODONE-AC1 EAC1 PO (19:10)
[2021-08-24] MEDS ORDERED: NAPROXEN250 MG PO (19:10)
[2021-08-24] MEDS ORDERED: REGLAN10 M1 PO (19:10)
== END 2021-08-24 19:26 | disposition home or self-care (01) ==
LOC: ED 16:29
PROVIDERS: Emergency Medicine
DX: N23 Unspecified renal colic (principal); N13.30 Unspecified hydronephrosis; I50.9 Heart failure, unspecified; E66.01 Morbid (severe) obesity due to excess calories; Z88.0 Allergy status to penicillin; Z88.6 Allergy status to analgesic agent; Z79.899 Other long term (current) drug therapy

== ENCOUNTER 2021-12-19 11:57 | Emergency (ER) | payer OTHER ==
[~2021-12-19] VITALS: Wt 111.1 kg
[~2021-12-19 11:57] MED LIST changes: +FLOMAX0.4 MG PO; +HYDROCODONE-AC1 EAC1 PO; +NAPROXEN250 MG PO; +REGLAN10 M1 PO; +TYLENOL325 M1 PO
[2021-12-19 12:45] LABS: BASO % 0.5 % (0.0-1.0); EOS # 0.1 10*3/uL (0.0-0.4); EOS % 1.6 % (1.0-4.0); HEMATOCRIT 33.5 % (37.0-47.0); LYMPH # 1.8 10*3/uL (1.3-4.4); LYMPH % 47.8 % (27.0-41.0); MEAN CELL VOLUME 87.9 fl (81.0-99.0); MEAN CORPUSCULAR HGB 29.1 pg (27.0-31.0); MEAN CORPUSCULAR HGB CONC 33.1 g/dl (33.0-37.0); MEAN PLATELET VOLUME 7.6 fl (9.6-12.3); MONO # 0.3 10*3/uL (0.1-1.0); MONO % 8.2 % (3.0-9.0); NEUT # 1.6 10*3/uL (2.3-7.9); NEUT % 41.9 % (47.0-73.0); PLATELET COUNT AUTOMATED 281 10*3/uL (130-400); RED BLOOD COUNT 3.81 10*6/uL (4.10-5.10); RED CELL DISTRI WIDTH 14.8 % (0-14.5); WHITE BLOOD COUNT 3.8 10*3/uL (4.8-10.8)
[2021-12-19 13:05] LABS: ALKALINE PHOSPHATASE 35 U/L (45-117); BUN 12 mg/dl (7-24); CHLORIDE 106 mmol/L (98-107); CREATININE 0.68 mg/dL (0.55-1.02); POTASSIUM 3.9 mmol/L (3.5-5.1); SGOT/AST 21 IU/L (3-35); SGPT/ALT 32 U/L (12-78); SODIUM 136 mmol/L (136-145)
== END 2021-12-19 15:30 | disposition home or self-care (01) ==
LOC: ED 11:57
PROVIDERS: Nurse Practitioner Family
DX: R60.0 Localized edema (principal); Z88.0 Allergy status to penicillin; Z88.8 Allergy status to other drugs, medicaments and biological substances; Z79.899 Other long term (current) drug therapy; Z90.89 Acquired absence of other organs; Z98.890 Other specified postprocedural states; Z98.51 Tubal ligation status

== ENCOUNTER 2022-05-06 13:55 | Emergency (ER) | payer OTHER ==
[~2022-05-06] VITALS: Ht 157.4 cm; Wt 108.9 kg
[2022-05-06 14:44] LABS: BASO % 0.2 % (0.0-1.0); EOS # 0.1 10*3/uL (0.0-0.4); EOS % 2.3 % (1.0-4.0); HEMATOCRIT 34.8 % (37.0-47.0); LYMPH # 1.7 10*3/uL (1.3-4.4); LYMPH % 37.8 % (27.0-41.0); MEAN CELL VOLUME 86.4 fl (81.0-99.0); MEAN CORPUSCULAR HGB 27.8 pg (27.0-31.0); MEAN CORPUSCULAR HGB CONC 32.2 g/dl (33.0-37.0); MONO # 0.4 10*3/uL (0.1-1.0); NEUT # 2.2 10*3/uL (2.3-7.9); NEUT % 51.5 % (47.0-73.0); PLATELET COUNT AUTOMATED 317 10*3/uL (130-400); RED BLOOD COUNT 4.03 10*6/uL (4.10-5.10); RED CELL DISTRI WIDTH 15.2 % (0-14.5); WHITE BLOOD COUNT 4.4 10*3/uL (4.8-10.8)
[2022-05-06 14:55] LABS: ACT PARTIAL THROMBO TIME 26.7 SECONDS (20.0-32.1)
[2022-05-06 15:01] LABS: ALKALINE PHOSPHATASE 40 U/L (45-117); BUN 10 mg/dl (7-24); CHLORIDE 106 mmol/L (98-107); CREATININE 0.65 mg/dL (0.55-1.02); POTASSIUM 3.5 mmol/L (3.5-5.1); SGOT/AST 26 IU/L (3-35); SGPT/ALT 37 U/L (12-78); SODIUM 137 mmol/L (136-145); TOTAL PROTEIN 7.3 gm/dL (6.4-8.2)
[2022-05-06 15:04] LABS: LIPASE 926 U/L (73-393)
[2022-05-06 15:10] LABS: BETA-HCG, QUANT < 1.0 mIU/mL (1-3)
[2022-05-06] MEDS ORDERED: Motrin,Rufen800 MG PO (17:54)
== END 2022-05-06 18:05 | disposition home or self-care (01) ==
LOC: ED 13:55
PROVIDERS: Emergency Medicine
DX: R09.1 Pleurisy (principal); Z91.048 Other nonmedicinal substance allergy status; Z88.0 Allergy status to penicillin; Z88.6 Allergy status to analgesic agent; Z79.899 Other long term (current) drug therapy; Z90.89 Acquired absence of other organs; Z98.890 Other specified postprocedural states; Z98.51 Tubal ligation status

== ENCOUNTER 2022-09-07 00:29 | Emergency (ER) | payer OTHER ==
[~2022-09-07] VITALS: Ht 157.4 cm; Wt 108.9 kg
[2022-09-07 02:08] LABS: BASO % 0.6 % (0.0-1.0); EOS # 0.1 10*3/uL (0.0-0.4); HEMATOCRIT 39.6 % (37.0-47.0); LYMPH # 2.7 10*3/uL (1.3-4.4); LYMPH % 40.8 % (27.0-41.0); MEAN CELL VOLUME 82.5 fl (81.0-99.0); MEAN CORPUSCULAR HGB 27.1 pg (27.0-31.0); MEAN CORPUSCULAR HGB CONC 32.8 g/dl (33.0-37.0); MEAN PLATELET VOLUME 7.8 fl (9.6-12.3); MONO # 0.4 10*3/uL (0.1-1.0); MONO % 6.7 % (3.0-9.0); NEUT # 3.3 10*3/uL (2.3-7.9); NEUT % 49.7 % (47.0-73.0); PLATELET COUNT AUTOMATED 283 10*3/uL (130-400); RED CELL DISTRI WIDTH 13.7 % (0-14.5); WHITE BLOOD COUNT 6.6 10*3/uL (4.8-10.8)
[2022-09-07 02:19] LABS: ACT PARTIAL THROMBO TIME 24.3 SECONDS (20.0-32.1)
[2022-09-07 02:22] LABS: ALKALINE PHOSPHATASE 36 U/L (46-116); BUN 10 mg/dl (9-23); CHLORIDE 105 mmol/L (98-107); POTASSIUM 3.9 mmol/L (3.4-5.1); SGPT/ALT 24 U/L (10-49); TOTAL PROTEIN 7.1 gm/dL (6.0-8.0)
== END 2022-09-07 05:43 | disposition home or self-care (01) ==
LOC: ED 00:29
PROVIDERS: Emergency Medicine
DX: R07.89 Other chest pain (principal); E11.9 Type 2 diabetes mellitus without complications; Z88.0 Allergy status to penicillin; Z88.8 Allergy status to other drugs, medicaments and biological substances; Z88.5 Allergy status to narcotic agent; Z87.442 Personal history of urinary calculi; I50.9 Heart failure, unspecified; Z90.89 Acquired absence of other organs; Z98.51 Tubal ligation status; Z98.890 Other specified postprocedural states; F10.90 Alcohol use, unspecified, uncomplicated; I11.0 Hypertensive heart disease with heart failure

== ENCOUNTER 2023-02-12 23:49 | Emergency (ER) | payer OTHER ==
[~2023-02-12] VITALS: Ht 157.4 cm; Wt 109.8 kg
[~2023-02-12 23:49] MED LIST changes: +GLUCOPHAGE500 MG PO; -METFORMIN HYD1000 MG PO; +ZESTRIL10 MG PO; -ZESTRIL40 MG PO
[2023-02-13] MEDS ORDERED: SPRYCEL100 MG PO (00:01)
[2023-02-13 00:28] LABS: BASO % 0.5 % (0.0-1.0); EOS # 0.2 10*3/uL (0.0-0.4); EOS % 2.4 % (1.0-4.0); HEMATOCRIT 38.4 % (37.0-47.0); LYMPH # 3.8 10*3/uL (1.3-4.4); LYMPH % 51.1 % (27.0-41.0); MEAN CELL VOLUME 79.8 fl (81.0-99.0); MEAN CORPUSCULAR HGB 26.2 pg (27.0-31.0); MEAN CORPUSCULAR HGB CONC 32.8 g/dl (33.0-37.0); MEAN PLATELET VOLUME 7.8 fl (9.6-12.3); MONO # 0.3 10*3/uL (0.1-1.0); MONO % 4.3 % (3.0-9.0); NEUT # 3.1 10*3/uL (2.3-7.9); NEUT % 41.4 % (47.0-73.0); PLATELET COUNT AUTOMATED 263 10*3/uL (130-400); RED BLOOD COUNT 4.81 10*6/uL (4.10-5.10); RED CELL DISTRI WIDTH 16.5 % (0-14.5); WHITE BLOOD COUNT 7.5 10*3/uL (4.8-10.8)
[2023-02-13 00:47] LABS: BUN 10 mg/dl (9-23); CHLORIDE 104 mmol/L (98-107)
[2023-02-13] MEDS ORDERED: PREDNISONE20 M1 PO (01:06)
== END 2023-02-13 01:18 | disposition home or self-care (01) ==
LOC: ED 23:49
PROVIDERS: Internal Medicine
DX: M25.542 Pain in joints of left hand (principal); I50.9 Heart failure, unspecified; I11.0 Hypertensive heart disease with heart failure; E11.9 Type 2 diabetes mellitus without complications; Z88.0 Allergy status to penicillin; Z88.5 Allergy status to narcotic agent; Z88.8 Allergy status to other drugs, medicaments and biological substances; Z98.890 Other specified postprocedural states; Z90.89 Acquired absence of other organs; Z98.51 Tubal ligation status

== ENCOUNTER 2023-03-02 02:53 | Emergency (ER) | payer OTHER ==
[~2023-03-02] VITALS: Ht 157.4 cm; Wt 109.8 kg
[~2023-03-02 02:53] MED LIST changes: +SPRYCEL100 MG PO
== END 2023-03-02 03:29 | disposition left against medical advice (07) ==
LOC: ED 02:53
DX: R07.81 Pleurodynia (principal); Z53.21 Procedure and treatment not carried out due to patient leaving prior to being seen by health care provider

== ENCOUNTER 2023-11-08 18:45 | Emergency (ER) | payer OTHER ==
[~2023-11-08] VITALS: Ht 157.4 cm; Wt 106.6 kg
[2023-11-08 19:23] LABS: BASO % 0.6 % (0.0-1.0); EOS # 0.1 10*3/uL (0.0-0.4); EOS % 1.8 % (1.0-4.0); HEMATOCRIT 40.3 % (37.0-47.0); LYMPH # 2.3 10*3/uL (1.3-4.4); LYMPH % 45.3 % (27.0-41.0); MEAN CELL VOLUME 90.2 fl (81.0-99.0); MEAN CORPUSCULAR HGB CONC 33.3 g/dl (33.0-37.0); MONO # 0.4 10*3/uL (0.1-1.0); MONO % 8.5 % (3.0-9.0); NEUT # 2.2 10*3/uL (2.3-7.9); NEUT % 43.4 % (47.0-73.0); PLATELET COUNT AUTOMATED 292 10*3/uL (130-400); RED BLOOD COUNT 4.47 10*6/uL (4.10-5.10); RED CELL DISTRI WIDTH 13.9 % (0-14.5)
[2023-11-08 19:44] LABS: ALKALINE PHOSPHATASE 40 U/L (46-116); BUN 8 mg/dl (9-23); CHLORIDE 104 mmol/L (98-107); POTASSIUM 4.1 mmol/L (3.4-5.1); SGPT/ALT 39 U/L (5-49); TOTAL PROTEIN 7.5 gm/dL (6.0-8.0)
[2023-11-08] MEDS ORDERED: methylPREDNISolone sod succ 125 MG VIAL IM ONE (21:55)
== END 2023-11-08 22:00 | disposition home or self-care (01) ==
LOC: ED 18:45
PROVIDERS: Internal Medicine
DX: R07.89 Other chest pain (principal); E80.7 Disorder of bilirubin metabolism, unspecified; R51.9 Headache, unspecified; R11.0 Nausea; I50.9 Heart failure, unspecified; Z91.048 Other nonmedicinal substance allergy status; Z88.0 Allergy status to penicillin; Z88.6 Allergy status to analgesic agent; Z79.2 Long term (current) use of antibiotics; Z79.899 Other long term (current) drug therapy; Z90.89 Acquired absence of other organs; Z98.890 Other specified postprocedural states; Z98.51 Tubal ligation status

== ENCOUNTER 2024-02-05 03:20 | Emergency (ER) | payer OTHER ==
[~2024-02-05] VITALS: Ht 157.4 cm; Wt 106.6 kg
[2024-02-05 04:03] LABS: BASO % 0.4 % (0.0-1.0); EOS # 0.1 10*3/uL (0.0-0.4); EOS % 2.5 % (1.0-4.0); HEMATOCRIT 37.1 % (37.0-47.0); LYMPH # 2.2 10*3/uL (1.3-4.4); LYMPH % 43.3 % (27.0-41.0); MEAN CELL VOLUME 84.9 fl (81.0-99.0); MEAN CORPUSCULAR HGB 29.3 pg (27.0-31.0); MEAN CORPUSCULAR HGB CONC 34.5 g/dl (33.0-37.0); MONO # 0.4 10*3/uL (0.1-1.0); NEUT # 2.4 10*3/uL (2.3-7.9); NEUT % 46.6 % (47.0-73.0); PLATELET COUNT AUTOMATED 286 10*3/uL (130-400); RED BLOOD COUNT 4.37 10*6/uL (4.10-5.10); RED CELL DISTRI WIDTH 13.8 % (0-14.5); WHITE BLOOD COUNT 5.2 10*3/uL (4.8-10.8)
[2024-02-05 04:16] LABS: BILIRUBIN Negative (Negative); BLOOD Negative (Negative); CLARITY Cloudy (Clear); COLOR Yellow (Yellow); GLUCOSE 3+ (Negative); KETONE Trace (Negative); LEUKO ESTERASE Trace (Negative); NITRITE Negative (Negative); SPECIFIC GRAVITY 1.025 (1.001-1.030)
[2024-02-05 04:23] LABS: URINE AMPHETAMINES Negative (1000ng/ml); URINE BARBITURATES Negative (200ng/ml); URINE BENZODIAZEPINES Negative (200ng/ml); URINE CANNABINOIDS (THC) Negative (50ng/ml); URINE COCAINE Negative (300ng/ml); URINE METHADONE Negative (300ng/ml); URINE OPIATES Negative (300ng/ml); URINE PHENCYCLIDINE Negative (25ng/ml)
[2024-02-05 04:26] LABS: ACT PARTIAL THROMBO TIME 25.1 SECONDS (20.0-32.1)
[2024-02-05 04:27] LABS: ALKALINE PHOSPHATASE 41 U/L (46-116); BUN 11 mg/dl (9-23); CHLORIDE 104 mmol/L (98-107); POTASSIUM 3.8 mmol/L (3.4-5.1); SGPT/ALT 26 U/L (5-49); TOTAL PROTEIN 6.9 gm/dL (6.0-8.0)
[2024-02-05 04:30] LABS: ETHYL ALCOHOL < 3.0 mg/dl (<3)
[2024-02-05] MEDS ORDERED: LISINOPRIL30 MG PO (04:43)
[2024-02-05] MEDS ORDERED: METOPROLOL SUCC25 M2 PO (04:44)
[2024-02-05] MEDS ORDERED: GOOD NEIGHBOR L10 MG PO (04:44)
[2024-02-05] MEDS ORDERED: ROSUVASTATIN CA10 MG PO (04:45)
[2024-02-05] MEDS ORDERED: VITAMIN D3125 MC1 PO (04:45)
[2024-02-05 04:49] LABS: EPITHELIAL CELLS TNTC
[2024-02-05 04:50] LABS: BACTERIA 1+
== END 2024-02-05 06:48 | disposition home or self-care (01) ==
LOC: ED 03:20
PROVIDERS: Internal Medicine
DX: R07.89 Other chest pain (principal); R06.02 Shortness of breath; R51.9 Headache, unspecified; I11.0 Hypertensive heart disease with heart failure; I50.9 Heart failure, unspecified; E11.9 Type 2 diabetes mellitus without complications; Z88.0 Allergy status to penicillin; Z88.8 Allergy status to other drugs, medicaments and biological substances; Z90.89 Acquired absence of other organs; Z98.51 Tubal ligation status; Z98.890 Other specified postprocedural states

== ENCOUNTER 2024-04-03 22:42 | Emergency (ER) | payer OTHER ==
[~2024-04-03] VITALS: Ht 157.4 cm; Wt 106.6 kg
[~2024-04-03 22:42] MED LIST changes: +GOOD NEIGHBOR L10 MG PO; +LISINOPRIL30 MG PO; +ROSUVASTATIN CA10 MG PO; +VITAMIN D3125 MC1 PO
[2024-04-03] MEDS ORDERED: Meclizine Hydrochloride 25 MG TAB PO ONE (23:05)
[2024-04-04] MEDS ORDERED: MEDI-MECLIZINE25 MG PO (00:05)
== END 2024-04-04 00:20 | disposition home or self-care (01) ==
LOC: ED 22:42
DX: H81.10 Benign paroxysmal vertigo, unspecified ear (principal); I11.0 Hypertensive heart disease with heart failure; I50.9 Heart failure, unspecified; E11.9 Type 2 diabetes mellitus without complications; Z88.0 Allergy status to penicillin; Z88.8 Allergy status to other drugs, medicaments and biological substances; Z90.89 Acquired absence of other organs; Z98.51 Tubal ligation status; Z98.890 Other specified postprocedural states

== ENCOUNTER 2024-04-11 08:56 | Emergency (ER) | payer OTHER ==
[~2024-04-11] VITALS: Ht 157.4 cm; Wt 106.6 kg
[~2024-04-11 08:56] MED LIST changes: +MEDI-MECLIZINE25 MG PO
[2024-04-11] MEDS ORDERED: Ondansetron Hydrochloride 4 MG/2 ML VIAL IV ONE (09:20)
[2024-04-11] MEDS ORDERED: MORPHINE Sulfate 2 MG/ML SYR IV ONE (09:20)
[2024-04-11] MEDS ORDERED: SODIUM CHLORIDE 0.9% 1,000 ML IV ONE (09:20)
[2024-04-11] MEDS ORDERED: IOHEXOL 300 MG/ML 100 ML VIAL IV ONE (09:30)
[2024-04-11 09:37] LABS: BASO % 0.4 % (0.0-1.0); EOS # 0.1 10*3/uL (0.0-0.4); EOS % 1.8 % (1.0-4.0); HEMATOCRIT 37.4 % (37.0-47.0); LYMPH # 2.3 10*3/uL (1.3-4.4); LYMPH % 45.7 % (27.0-41.0); MEAN CORPUSCULAR HGB 26.6 pg (27.0-31.0); MEAN CORPUSCULAR HGB CONC 31.3 g/dl (33.0-37.0); MEAN PLATELET VOLUME 7.6 fl (9.6-12.3); MONO # 0.3 10*3/uL (0.1-1.0); MONO % 6.3 % (3.0-9.0); NEUT # 2.3 10*3/uL (2.3-7.9); NEUT % 45.6 % (47.0-73.0); PLATELET COUNT AUTOMATED 327 10*3/uL (130-400); RED CELL DISTRI WIDTH 14.5 % (0-14.5); WHITE BLOOD COUNT 5.1 10*3/uL (4.8-10.8)
[2024-04-11 10:01] LABS: BILIRUBIN Negative (Negative); BLOOD Negative (Negative); CLARITY Cloudy (Clear); COLOR Yellow (Yellow); GLUCOSE 1+ (Negative); KETONE Trace (Negative); LEUKO ESTERASE 1+ (Negative); NITRITE Negative (Negative); SPECIFIC GRAVITY 1.025 (1.001-1.030)
[2024-04-11 10:05] LABS: ALKALINE PHOSPHATASE 39 U/L (46-116); BUN 11 mg/dl (9-23); CHLORIDE 105 mmol/L (98-107); LIPASE 76 U/L (12-53); POTASSIUM 3.6 mmol/L (3.4-5.1); SGPT/ALT 22 U/L (5-49); TOTAL PROTEIN 6.9 gm/dL (6.0-8.0)
[2024-04-11 10:22] LABS: BACTERIA 2+; EPITHELIAL CELLS 21-30; RBC 0-2 rbc/hpf (0-2)
[2024-04-11] MEDS ORDERED: CIPRO500 MG PO (11:22)
== END 2024-04-11 11:28 | disposition home or self-care (01) ==
LOC: ED 08:56
PROVIDERS: Internal Medicine
DX: N39.0 Urinary tract infection, site not specified (principal); R11.2 Nausea with vomiting, unspecified; I11.0 Hypertensive heart disease with heart failure; I50.9 Heart failure, unspecified; E11.9 Type 2 diabetes mellitus without complications; Z88.0 Allergy status to penicillin; Z88.8 Allergy status to other drugs, medicaments and biological substances; Z90.89 Acquired absence of other organs; Z98.51 Tubal ligation status; Z98.890 Other specified postprocedural states

== ENCOUNTER 2025-03-20 01:48 | Emergency (ER) | payer OTHER ==
[~2025-03-20] VITALS: Ht 157.4 cm; Wt 106.6 kg
[2025-03-20 02:15] LABS: MEAN CELL VOLUME 88.1 fl (81.0-99.0); MEAN CORPUSCULAR HGB 28.8 pg (27.0-31.0); MEAN PLATELET VOLUME 8.7 fl (9.6-12.3); NUCLEATED RED BLOOD CELL 0.1 10*3/uL (0.0-0.0); NUCLEATED RED BLOOD CELL 0.5 % (0.0-0.0); PLATELET COUNT AUTOMATED 259 10*3/uL (130-400); RED CELL DISTRI WIDTH 14.0 % (0-14.5)
[2025-03-20 02:16] LABS: MANUAL DIFF REFLEX YES
[2025-03-20 02:37] LABS: BUN 11 mg/dl (9-23)
[2025-03-20 02:39] LABS: BASOPHILS 2 % (0-1); PLATELET SUFFICIENCY NORMAL (NORMAL)
[2025-03-20] MEDS ORDERED: SODIUM CHLORIDE 0.9% 1,000 ML IV ONE (04:50)
== END 2025-03-20 07:17 | disposition home or self-care (01) ==
LOC: ED 01:48
PROVIDERS: Internal Medicine
DX: C92.10 Chronic myeloid leukemia, BCR/ABL-positive, not having achieved remission (principal); E11.65 Type 2 diabetes mellitus with hyperglycemia; I11.0 Hypertensive heart disease with heart failure; I50.9 Heart failure, unspecified; Z79.899 Other long term (current) drug therapy; Z88.0 Allergy status to penicillin; Z88.5 Allergy status to narcotic agent; Z88.6 Allergy status to analgesic agent; Z88.8 Allergy status to other drugs, medicaments and biological substances; Z98.51 Tubal ligation status; Z90.89 Acquired absence of other organs; Z98.890 Other specified postprocedural states

== ENCOUNTER 2025-06-22 20:25 | Emergency (ER) | payer OTHER ==
[~2025-06-22] VITALS: Ht 152.4 cm; Wt 106.6 kg
[2025-06-22] MEDS ORDERED: SODIUM CHLORIDE 0.9% 1,000 ML IV ONE (21:50)
[2025-06-22 22:10] LABS: BASO # 0.0 10*3/uL (0.0-0.1); BASO % 0.5 % (0.0-1.0); EOS # 0.1 10*3/uL (0.0-0.4); EOS % 2.2 % (1.0-4.0); MEAN CELL VOLUME 92.0 fl (81.0-99.0); MEAN CORPUSCULAR HGB 29.9 pg (27.0-31.0); MEAN PLATELET VOLUME 7.8 fl (9.6-12.3); MONO # 0.4 10*3/uL (0.1-1.0); MONO % 9.5 % (3.0-9.0); NEUT # 2.0 10*3/uL (2.3-7.9); NEUT % 50.5 % (47.0-73.0); NUCLEATED RED BLOOD CELL 0.0 % (0.0-0.0); NUCLEATED RED BLOOD CELL 0.0 10*3/uL (0.0-0.0); PLATELET COUNT AUTOMATED 218 10*3/uL (130-400); RED CELL DISTRI WIDTH 13.5 % (0-14.5)
[2025-06-22 22:25] LABS: BUN 7 mg/dl (9-23)
[2025-06-22 22:29] LABS: BILIRUBIN Negative (Negative); BLOOD Negative (Negative); CLARITY Cloudy (Clear); COLOR Yellow (Yellow); KETONE Negative (Negative); LEUKO ESTERASE 3+ (Negative); NITRITE Negative (Negative); PH 8.0 (4.5-8.0); SPECIFIC GRAVITY 1.010 (1.001-1.030); UROBILINOGEN 1.0 E.U./dl (0.0-1.0)
[2025-06-22] MEDS ORDERED: Ondansetron Hydrochloride 4 MG/2 ML VIAL IV ONE (22:30)
[2025-06-22 22:47] LABS: BACTERIA 2+; EPITHELIAL CELLS 31-40; RBC 0-2 rbc/hpf (0-2); WBC 21-30 wbc/hpf (0-5)
[2025-06-23] MEDS ORDERED: CEFADROXIL500 M1 PO (03:03)
== END 2025-06-23 03:09 | disposition home or self-care (01) ==
LOC: ED 20:25
PROVIDERS: Emergency Medicine
DX: N39.0 Urinary tract infection, site not specified (principal); N83.201 Unspecified ovarian cyst, right side; N20.0 Calculus of kidney; I11.0 Hypertensive heart disease with heart failure; I50.9 Heart failure, unspecified; E11.9 Type 2 diabetes mellitus without complications; Z91.048 Other nonmedicinal substance allergy status; Z88.0 Allergy status to penicillin; Z88.6 Allergy status to analgesic agent; Z79.84 Long term (current) use of oral hypoglycemic drugs; Z79.899 Other long term (current) drug therapy; Z90.89 Acquired absence of other organs; Z98.890 Other specified postprocedural states; Z98.51 Tubal ligation status